=== PATIENT | male | born 1970 | race Caucasian/White ===

== ENCOUNTER 2016-10-14 10:22 | Emergency (ER) | payer OTHER ==
[2016-10-14 11:06] VITALS: BP 139/94
--- NOTE | 2016-10-14 11:07 | UC ---
Eye Complaint HPI - HPI Summary HPI Summary: right eye drainage on/off for 6 months---now getting worse eye is swollen , conjunctiva red clear drainage - History of Current Complaint Chief Complaint: UCEye Stated Complaint: EYE COMPLAINT Time Seen by Provider: 10/14/16 10:25 Hx Obtained From: Patient Onset/Duration: Gradual Onset, Lasting Weeks, Still Present, Worse Since - past few days Timing: Constant Severity Initially: Mild Severity Currently: Moderate Pain Intensity: 4 Pain Scale Used: 0-10 Numeric Location of Injury: Conjunctiva, Eye Lid (upper) Character: Foreign Body Sensation Aggravating Factor(s): Nothing Alleviating Factor(s): Nothing Associated Signs And Symptoms: Positive: Drainage (Clear), Swelling - upper lid - Allergies/Home Medications Allergies/Adverse Reactions: Allergies Allergy/AdvReac Type Severity Reaction Status Date / Time Penicillins Allergy Intermediate Hives Verified 10/14/16 10:44 Home Medications: Home Medications Cetirizine* [ZyrTEC 10 MG TAB*] 10 mg PO DAILY 10/14/16 [History Confirmed 10/14] Famotidine TAB* [Pepcid 20 MG TAB*] 20 mg PO DAILY 10/14/16 [History Confirmed 10/14/16] Hydrochlorothiazide TAB* [Hydrodiuril TAB*] 50 mg PO DAILY 10/14/16 [History Confirmed 10/14/16] Multiple Vitamin [Multi Vitamin] 1 tab PO DAILY 10/14/16 [History Confirmed ] PMH/Surg Hx/FS Hx/Imm Hx Previously Healthy: No Cardiovascular History: Hypertension GI/ History: Gastroesophageal Reflux - Surgical History Surgical History: Yes Surgery Procedure, Year, and Place: tonsils - Family History Known Family History: Positive: None - Social History Occupation: Employed Full-time Lives: With Family Alcohol Use: Occasionally Substance Use Type: None Smoking Status (MU): Never Smoked Tobacco Review of Systems Constitutional: Negative Skin: Negative Eyes: Drainage, Eye Redness ENT: Negative Respiratory: Negative Cardiovascular: Negative Gastrointestinal: Negative Genitourinary: Negative Motor: Negative Neurovascular: Negative Musculoskeletal: Negative Neurological: Negative Psychological: Negative All Other Systems Reviewed And Are Negative: Yes Physical Exam Triage Information Reviewed: Yes Appearance: Well-Appearing, No Pain Distress, Well-Nourished Vital Signs: Initial Vital Signs Temp 98 F 10/14/16 10:33 Pulse 66 10/14/16 10:33 Resp 16 10/14/16 10:33 BP 139/94 10/14/16 10:33 Pulse Ox 98 10/14/16 10:33 Vital Signs Reviewed: Yes Eye Exam: Other Eyes: Positive: Conjunctiva Inflamed - right, Discharge, Other: - perrla ENT Exam: Normal ENT: Positive: Normal ENT inspection, Hearing grossly normal, Pharynx normal, Nasal drainage. Negative: Nasal congestion, Trismus, Muffled/hoarse voice Dental Exam: Normal Neck exam: Normal Neck: Positive: Supple, Nontender Respiratory Exam: Normal Respiratory: Positive: No respiratory distress, No accessory muscle use Cardiovascular Exam: Normal Cardiovascular: Positive: RRR, Pulses Normal, Brisk Capillary Refill Musculoskeletal Exam: Normal Musculoskeletal: Positive: Strength Intact, ROM Intact, No Edema Neurological Exam: Normal Neurological: Positive: Alert, Muscle Tone Normal Psychological Exam: Normal Skin Exam: Normal Eye Complaint Course/Dx - Course Course Of Treatment: e-mycin eye ointment, zithromax, follow with optho at home or return as needed - Differential Dx/Diagnosis Differential Diagnosis/HQI/PQRI: Conjunctivitis, Penetrating Injury, Periorbital Cellulitis, Orbital Cellulitis, Other - dacryocystitis Provider Diagnoses: dacryocystitis OD Discharge - Discharge Plan Condition: Stable Disposition: HOME Prescriptions: Azithromycin TAB* [Zithromax TAB (Z-HUMPHREY) 250 mg #6 tabs] 2 tab PO .TODAY, THEN 1 DAILY #1 humphrey Erythromycin OPHTH.OINT* [Ilotycin OPHTH.OINT*] 1 applic RIGHT EYE BEDTIME #1 tube Patient Education Materials: Dacryostenosis (ED) Additional Instructions: Follow with your eye doctor in 5-7 days for recheck or sooner should symptoms worsen or fail to improve
== END 2016-10-14 11:17 | disposition home or self-care (01) ==
LOC: UCCORT 10:22
DX: H04.301 Unspecified dacryocystitis of right lacrimal passage (principal); I10 Essential (primary) hypertension; K21.9 Gastro-esophageal reflux disease without esophagitis; Z88.0 Allergy status to penicillin
CPT/HCPCS: 99202; G0463